=== PATIENT | female | born 1975 | race Caucasian/White ===

== ENCOUNTER 2021-12-29 08:58 | Outpatient (CLI) | payer OTHER, SELFPAY ==
[2021-12-29 11:14] LABS: Cholesterol* 139 mg/dL (90-199); HDL Cholesterol* 78 mg/dL (>=50); LDL Cholesterol Calculated 49 mg/dL (<100); Triglycerides* 58 mg/dL (40-149)
[2021-12-30 13:38] LABS: Beta-2-Microglob Serum/Plasma 1.4 mg/L (0.8-2.4)
[2021-12-30 21:30] LABS: Prolactin 7.2 ng/mL (2.8-29.2)
[2022-01-02 10:49] LABS: 17-Hydroxyprogesterone HPLC 181.31 ng/dL (<=206.00)
[2022-01-03 16:46] LABS: Sex Hormone Binding Globulin 90 nmol/L (25-122); Testosterone, Free LC-MS/MS 1.7 pg/mL (1.1-5.8); Testosterone, LC-MS/MS 20 ng/dL (9-55)
== END 2021-12-29 08:59 | disposition home or self-care (01) ==
PROVIDERS: Visit Provider Obstetrics & Gynecology
DX: Z01.419 Encounter for gynecological examination (general) (routine) without abnormal findings (principal); N92.6 Irregular menstruation, unspecified; N96 Recurrent pregnancy loss; R33.9 Retention of urine, unspecified; Z13.6 Encounter for screening for cardiovascular disorders; Z13.1 Encounter for screening for diabetes mellitus
CPT/HCPCS: 80061; 82232; 83498; 83520; 84146; 84270; 84402; 84403; 84443; 88262

== ENCOUNTER 2021-12-31 10:52 | Outpatient (CLI) | payer OTHER, SELFPAY ==
--- NOTE | 2021-12-31 11:00 | CRLHL7_ITS ---
For Patients: As a result of the Century Cures Act, medical imaging exams and procedure reports are released immediately into your electronic medical record. You may view this report before your referring provider. If you have questions, please contact your health care provider. CLINICAL HISTORY: Incomplete bladder emptying TECHNIQUE: Real time, whipple scale images were acquired of the pelvis using a transabdominal and transvaginal approach. Color Doppler analysis was performed of the ovaries. FINDINGS: The uterus measures 8 x 5.2 x 7.1 centimeters endometrium measures 1.3 centimeters. Right ovary measures 4.5 x 2 0.7 x 3 centimeters. Left ovary measures 4.1 x 3.2 x 3.4 centimeters normal blood flow to both ovaries. 2.5 x 2.4 x 2.5 centimeter complex right ovarian cyst. IMPRESSION: 1. 2.5 centimeter complex ovarian cyst recommend follow-up ultrasound in 8-12 week study is otherwise unremarkable. Dictated by Jaquelin Allison MD @ 12/31/2021 1:31:22 PM (Electronically Signed)
== END 2021-12-31 10:53 | disposition home or self-care (01) ==
LOC: US 10:52
PROVIDERS: Visit Provider Obstetrics & Gynecology
DX: R33.9 Retention of urine, unspecified (principal); N83.201 Unspecified ovarian cyst, right side
CPT/HCPCS: 76830; 76856

== ENCOUNTER 2022-04-15 10:00 | Outpatient (RCR) | payer OTHER, SELFPAY | END 2022-04-15 12:11 | disposition home or self-care (01) | PROVIDERS: Visit Provider Obstetrics & Gynecology | DX: R33.9 Retention of urine, unspecified (principal); N39.3 Stress incontinence (female) (male); Z51.89 Encounter for other specified aftercare | CPT/HCPCS: 97110; 97112; 97140; 97161; 97535 ==

== ENCOUNTER 2023-11-09 17:24 | Outpatient (CLI) | payer OTHER, SELFPAY ==
--- NOTE | 2023-11-09 17:20 | CRLHL7_ITS ---
For Patients: As a result of the Century Cures Act, medical imaging exams and procedure reports are released immediately into your electronic medical record. You may view this report before your referring provider. If you have questions, please contact your health care provider. BILATERAL SCREENING MAMMOGRAM WITH COMPUTER-AIDED DETECTION AND TOMOSYNTHESIS TECHNIQUE: CC and MLO views were obtained. These mammographic images have been obtained using full-field digital technique. These mammographic images were interpreted with the benefit of computer-aided detection. Breast Tomosynthesis was used in this interpretation. COMPARISON FILM: 07/15/21, 05/22/19. FINDINGS: The breasts are heterogeneously dense, which may obscure small masses IMPRESSION: There is no radiographic evidence for malignancy. ASSESSMENT: BI-RADS Category 1: Negative RECOMMENDATION: Routine screening mammogram in 1 year. A lay language report of this examination will be provided to the patient. Jayce Crane M.D. Diagnostic Radiologist [email or web address] Transcribed: 6:07 p.isabel collins/Dictated by: Jayce Crane MD @ 11/11/2023 9:08:00 AM (Electronically Signed)
== END 2023-11-09 17:25 | disposition home or self-care (01) ==
LOC: MAMMO 17:25
PROVIDERS: Visit Provider Obstetrics & Gynecology
DX: Z12.31 Encounter for screening mammogram for malignant neoplasm of breast (principal); R92.2 Inconclusive mammogram
CPT/HCPCS: 77063; 77067

== ENCOUNTER 2024-04-19 08:56 | Outpatient (CLI) | payer OTHER, SELFPAY ==
[2024-04-26 01:07] LABS: HPV Source Cervix; HPV, High Risk by TMA Not Detected
== END 2024-04-19 08:57 | disposition home or self-care (01) ==
PROVIDERS: Visit Provider Obstetrics & Gynecology
DX: K76.0 Fatty (change of) liver, not elsewhere classified (principal); R23.2 Flushing; N92.6 Irregular menstruation, unspecified; Z13.6 Encounter for screening for cardiovascular disorders; Z13.1 Encounter for screening for diabetes mellitus; Z12.4 Encounter for screening for malignant neoplasm of cervix; Z11.51 Encounter for screening for human papillomavirus (HPV)
CPT/HCPCS: 80061; 80076; 84439; 84443; 87624; 87625; 88141; 88142

== ENCOUNTER 2024-05-11 08:01 | Outpatient (CLI) | payer OTHER, SELFPAY ==
--- NOTE | 2024-05-11 09:32 | W.ANESCHARGE ---
Anesthesia Charges Start Date/Time Anesthesia Start Date: 05/11/24 Anesthesia Start Time: 08:57 Stop Date/Time Anesthesia Stop Date: 05/11/24 Anesthesia Stop Time: 09:32 Coding CPT Codes CPT Codes: ANES LWR INTST NDSC NOS - 43457 ([id number]) P2 - PATIENT W/MILD SYST DISEASE, QZ - DIGITAL FORENSIC EXAMINER SVC W/O BOOTH USHER BY
--- NOTE | 2024-05-11 10:39 | W.ANESCHARGE ---
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
== END 2024-05-11 08:02 | disposition home or self-care (01) ==
LOC: OP CLINIC 08:02
PROVIDERS: Visit Provider Surgery
DX: Z12.11 Encounter for screening for malignant neoplasm of colon (principal); D12.5 Benign neoplasm of sigmoid colon
CPT/HCPCS: 00811; 45385; 88305; J2704

== ENCOUNTER 2024-10-17 13:25 | Outpatient (CLI) | payer OTHER, SELFPAY ==
[2024-10-17 15:12] LABS: Albumin* 4.4 g/dL (3.3-5.0); Chloride* 104 mmol/L (96-114); Potassium* 3.9 mmol/L (3.6-5.1); Sodium* 137 mmol/L (135-149)
[2024-10-17 15:14] LABS: Blood Urea Nitrogen* 16 mg/dL (5-24); Creatinine* 0.9 mg/dL (0.5-1.5); Estimated Glomerular Filt Rate 80 ml/min
[2024-10-17 15:15] LABS: Alanine Aminotransferase* 19 U/L (4-35); Alkaline Phosphatase* 54 U/L (40-150); Anion Gap 4 mEq/L (7-15); Aspartate Amino Transferase* 32 U/L (12-35); Bilirubin Total* 0.7 mg/dL (0.1-1.5); Calcium* 8.9 mg/dL (8.4-10.6); Carbon Dioxide* 29 mmol/L (20-32); Glucose* 88 mg/dL (60-115); Total Protein* 6.7 g/dL (6.0-8.3)
[2024-10-17 15:33] LABS: Free T4 Free Thyroxine* 0.93 ng/dL (0.70-1.85)
== END 2024-10-17 13:26 | disposition home or self-care (01) ==
PROVIDERS: Visit Provider Obstetrics & Gynecology
DX: E05.90 Thyrotoxicosis, unspecified without thyrotoxic crisis or storm (principal)
CPT/HCPCS: 36415; 80053; 84439; 84443